=== PATIENT | female | born 1980 | race Caucasian/White ===

== ENCOUNTER → 2022-02-16 | Outpatient (CLI) | payer OTHER, SELFPAY ==
--- NOTE | 2022-02-16 15:19 | US_ITS ---
STUDY: RENAL ULTRASOUND - COMPLETE REASON FOR EXAM: Female, 41 years old. UTI TECHNIQUE: Ultrasound evaluation of the kidneys was performed with real-time and static mc-scale imaging. COMPARISON: None. FINDINGS: RIGHT KIDNEY: Normal location of the right kidney, which is normal in size. The right kidney measures 10.2 cm x 5 cm x 3.9 cm. There is a normal cortex of the right kidney. The renal cortex measures 1.3 cm. There is no right renal mass or cyst. There are no right renal calculi. There is no right hydronephrosis. DISTAL RIGHT URETER: There is non-visualization of the distal right ureter. There is no demonstrated right ureterovesical junction calculus. There is a visualized right ureteral jet. LEFT KIDNEY: Normal location of the left kidney, which is normal in size. The left kidney measures 10.7 cm x 4.3 cm x 5.6 cm. There is a normal cortex of the left kidney. The renal cortex measures 1.4 cm. There is no left renal mass or cyst. There are no left renal calculi. There is no left hydronephrosis. DISTAL LEFT URETER: There is non-visualization of the distal left ureter. There is no demonstrated left ureterovesical junction calculus. There is a visualized left ureteral jet. BLADDER: The distended urinary bladder has a volume of 467 ml. There is a normal wall thickness of the distended urinary bladder. There is no demonstrated mass within the urinary bladder. There are no demonstrated bladder calculi. US/Kidney and Bladder IMPRESSION: Normal ultrasound of the kidneys and urinary bladder. Electronically Signed: Onel Aleman MD at 8:51 EDT ,
== END | disposition home or self-care (01) ==
PROVIDERS: PCP Nurse Practitioner Family; Visit Provider Urology
DX: N39.0 Urinary tract infection, site not specified (principal)
CPT/HCPCS: 76770

== ENCOUNTER 2023-03-29 11:36 | Day surgery (SDC) | payer OTHER, SELFPAY ==
[2023-03-29] VITALS (7 sets, daily range): BP systolic 88–106; BP diastolic 46–75; PULSE 49–62; RESP 16–18; TEMP 36.6–37.1; O2SAT 18–100; BMI 22.3
[2023-03-29] MEDS: Lactated Ringers 1,000 ML 15 ML IV (12:14)
[2023-03-29 12:21] LABS: Internal QC Validated? YES +Cl - CLEAR BKGD; Pregnancy, Urine Negative Negative
--- NOTE | 2023-03-29 13:15 | BLA_PTH ---
PATIENT: NIGEL LEHMAN LOC: [facility] – [place] U#:[id number] AGE/SX: 42/F ROOM: RE03/29/[address]: Dr. Soledad Sheppard MD : 1980 BED: DIS: 03/29/2023 SPEC #: [id number] RECD: 03/29/23 16:00 STATUS: MAXIMINO COLLADO #: [id number] NILES: 03/29/23 13:[address]: Soledad Sheppard DEPT: SURGICAL PATHOLOGY RECD BY: Yudelka Islas ENTERED: 03/30/23 09:04 SP TYPE: BLADDER BX OTHR DR: FITO Boudreaux Tissues: Urinary bladder, NOS Procedures: Surgery Specimen Level IV HEADER OPERATION: Biopsy bladder with fulguration PRE-OP DIAGNOSIS: Urinary tract infection, stress incontinence, nocturia TISSUE SUBMITTED: Bladder biopsy MICROSCOPIC DIAGNOSIS Urinary bladder, biopsy: Fragment of benign squamous mucosa. AM:marcio 04/02/2023 MICROSCOPIC DESCRIPTION Slides are reviewed. GROSS DESCRIPTION Received in fixative is one container labeled with the patient's name and designated bladder biopsy. The specimen consists of one irregular fragment of light bernabe soft tissue that measures 0.1 x 0.1 x <0.1 cm. The specimen is totally submitted in one cassette. / AM:marcio 03/30/2023 TC:5 CPT: 77536
[2023-03-29] MEDS: Cefazolin 2 GM in 0.9% Normal Saline 100 ML IV (14:00)
--- NOTE | 2023-03-29 14:03 | DCINST_ITS ---
Discharge Instructions Diet Discharge Diet: No restrictions Activity Discharge Activity: Return to Normal Activity Dressing / Incision Call your doctor if you observe: Fever of 101 or Higher, Inability to urinate and Inability to have a bowel movement Follow Up Care Please Follow Up With: Soledad Sheppard MD When: The office will call to make arrangements for follow-up next week. Test Results: Test results from this visit will be discussed in further detail at your follow- up appointment, if applicable. Discharge Plan Admission Attending Provider: Soledad Sheppard Primary Care Provider: Sherrell Jean NP Discharge Orders/Prescriptions Referrals / Follow Up: Sherrell Jean NP, [facility] [Primary Care Provider] - Disposition Disposition (needs filled in before D/C Order can be placed): Home, Self Care
--- NOTE | 2023-03-29 14:04 | PCM.OPRPT ---
Report of Operation Date of Procedure: 03/29/23 Pre-Operative Diagnosis: Small bladder lesion, urinary tract infections Post-Operative Diagnosis: Same Surgery/Procedure Performed:: Cystoscopy, bladder biopsy with fulguration Surgeon: Soledad Sheppard Type of Anesthesia: MAC Specimen's removed: Bladder biopsy Description of Procedure: The patient is a 42-year-old female who had a cystoscopy in the office for evaluation of urinary tract infections. At that time a 5 mm vascular papillary lesion was identified in the area of the trigone. The decision was made to take her to the operating room for biopsy and removal with fulguration of the base. Informed consent was obtained. The patient was taken to the operating room and placed on the operating room table. Anesthesia monitored the head, neck, airway, IV access and vital signs throughout the case. Once anesthesia was appropriately administered, the patient was placed into dorsolithotomy position was prepped and draped in usual sterile fashion. The cystoscope was then inserted through the urethra under direct visualization into the urinary bladder. The same lesion was identified. Biopsy forceps were used to remove the lesion and the base was cauterized with the Bovie cautery. No other lesions were identified on further evaluation of the bladder mucosa. Her bladder was then emptied and the case was terminated. She was awakened and taken to the recovery room in good condition. There were no complications during this procedure. Grafts/Implants Used: None Complications None Admit VTE Documentation VTE Present on Admission: Yes VTE Mechan Device Prophylaxis: SCD's VTE Pharm Prophylaxis ordered?: No Reason prophylaxis not ordered:: Treatment Not Indicated
== END 2023-03-29 15:06 | disposition home or self-care (01) ==
LOC: SDC 11:38 → AC 11:40
PROVIDERS: Anesthesiology; PCP Nurse Practitioner Family; Referring Provider Urology; Visit Provider Urology
PROC: 0TBB8ZX Excision of Bladder, Via Natural or Artificial Opening Endoscopic, Diagnostic (ICD-10-PCS; CPT 52234; principal; 2023-03-29 13:05)
DX: N39.0 Urinary tract infection, site not specified (principal); N39.3 Stress incontinence (female) (male); R35.1 Nocturia; I73.00 Raynaud's syndrome without gangrene
CPT/HCPCS: 52234; 00912; 81025; 88305; J7120; J2405